=== PATIENT | female | born 1970 | race Caucasian/White ===

== ENCOUNTER 2023-06-30 03:44 | Day surgery (SDC) | payer OTHER ==
[2023-06-25 17:00] VITALS: BMI 26.2
[2023-06-30] MEDS ORDERED: SUCCINYLCHOLINE CHLORIDE 200 MG/10 ML SYRINGE ONE (07:15)
[2023-06-30] MEDS ORDERED: ceFAZolin SODIUM 1 GM VIAL ONE (07:15)
[2023-06-30] MEDS ORDERED: KETOROLAC TROMETHAMINE 30 MG/1 ML VIAL ONE (07:15)
[2023-06-30] MEDS ORDERED: LIDOCAINE HCL/PF 2% SDV 5ML VIAL ONE (07:15)
[2023-06-30] MEDS ORDERED: ONDANSETRON 4 MG/2 ML VIAL ONE (07:15)
[2023-06-30] MEDS ORDERED: SODIUM CHLORIDE 0.9% P/F 10 ML VIAL IJ ONE (07:15)
[2023-06-30] MEDS ORDERED: DEXAMETHASONE SOD PHOSPHATE 4 MG/1 ML VIAL ONE (07:15)
[2023-06-30] MEDS ORDERED: MIDAZOLAM HCL 2 MG/2 ML SINGLE DOSE VIAL ONE (07:16)
[2023-06-30] MEDS ORDERED: PROPOFOL 40 ML ONE (07:16)
[2023-06-30] MEDS ORDERED: IBUPROFEN 800 MG/8 ML IJ IVPB PRN (07:35)
[2023-06-30] MEDS ORDERED: oxyCODONE HCL 5 MG TABLET PO PRN ×2 (07:35→08:36)
[2023-06-30] MEDS ORDERED: IBUPROFEN 600 MG TABLET (FP) PO PRN (07:35)
[2023-06-30] MEDS ORDERED: ONDANSETRON 4 MG/2 ML VIAL IVPUSH PRN (07:35)
[2023-06-30] MEDS ORDERED: ELECTROLYTE-148 SOLN 1,000 ML IV SCH (07:45)
[2023-06-30] MEDS ORDERED: LACTATED RINGERS SOLUTION 1,000 ML IV SCH (08:45)
[2023-06-30 09:38] VITALS: RESP 20
[2023-06-30 11:03] VITALS: BP 138/93; PULSE 909; TEMP 98.1
== END 2023-06-30 11:00 | disposition home or self-care (01) ==
LOC: JASU-SURG 03:44
PROVIDERS: ATTEND Obstetrics & Gynecology
PROC: 0UB98ZZ Excision of Uterus, Via Natural or Artificial Opening Endoscopic (ICD-10-PCS; principal; 2023-06-30 07:30)
DX: N93.9 Abnormal uterine and vaginal bleeding, unspecified (principal); N84.0 Polyp of corpus uteri
CPT/HCPCS: 81025; 86850; 86900; 86901; 88305-TC; 94760